=== PATIENT | male | born 1965 | race Caucasian/White ===

== ENCOUNTER 2020-09-13 15:32 | Emergency (ER) | payer MEDICARE, MEDICAID ==
--- NOTE | 2020-09-13 15:43 | EDM.PDOC ---
ED HPI GENERAL MEDICAL PROBLEM - General Chief Complaint: General Stated Complaint: INTOXICATION Time Seen by Provider: 09/13/20 15:36 - History of Present Illness INITIAL COMMENTS - FREE TEXT/NARRATIVE: 55-year-old male presents via EMS. Patient states that he was drinking some today. He had to walk a long way and so started to feel dehydrated so he sat down next to the road. A passerby called EMS and EMS brought him here saying that he was disoriented. He agrees that he is somewhat disoriented. He states that he has been drinking alcohol today. He request something to drink but has no other complaints at this time. - Related Data Allergies Allergy/AdvReac Type Severity Reaction Status Date / Time No Known Allergies Allergy Verified 08/23/18 10:28 MDT Home Meds: Home Meds DULoxetine HCl [Cymbalta] 60 mg PO DAILY 08/10/18 [History] FLUoxetine HCl [Fluoxetine HCl] 40 mg PO DAILY 08/10/18 [History] Fenofibrate,Micronized [Fenofibrate] 134 mg PO DAILY 08/10/18 [History] Levothyroxine [Synthroid] 50 mcg PO DAILY 08/10/18 [History] Lurasidone HCl [Latuda] 60 mg PO DAILY 08/10/18 [History] Meloxicam [Mobic] 15 mg PO DAILY 08/10/18 [History] Naltrexone 50 mg PO DAILY 08/10/18 [History] OLANZapine [Olanzapine] 30 mg PO BEDTIME 08/10/18 [History] Omeprazole Magnesium [Prilosec Otc] 20 mg PO DAILY 08/10/18 [History] busPIRone [Buspar] 15 mg PO BID 08/10/18 [History] cloNIDine [Catapres] 0.1 mg PO BEDTIME 08/10/18 [History] traZODone HCl [Trazodone HCl] 200 mg PO BEDTIME 08/10/18 [History] Disulfiram 500 mg PO DAILY 08/23/18 [History] Past Medical History Respiratory History: Reports: Other (See Below) Other Respiratory History: emphysema Musculoskeletal History: Reports: Other (See Below) Other Musculoskeletal History: cervical neck surgery Psychiatric History: Reports: Anxiety, Depression - Past Surgical History GI Surgical History: Reports: Cholecystectomy Musculoskeletal Surgical History: Reports: Other (See Below) Other Musculoskeletal Surgeries/Procedures:: marfins syndrome Social & Family History - Family History Family Medical History: No Pertinent Family History - Caffeine Use Caffeine Use: Reports: Coffee, Soda ED ROS GENERAL - Review of Systems Review Of Systems: See Below Free Text/Narrative/Comment: General: No fever. Skin: No rash. Eyes: No vision problems. ENT: No sore throat. Neck: No neck stiffness. Respiratory: No shortness of breath. Cardiac: No chest pain. Gastrointestinal: No nausea, vomiting or abdominal pain. Urinary: No dysuria. Musculoskeletal: No myalgias/arthralgias. Neurologic: No headache. ED EXAM, GENERAL - Physical Exam Exam: See Below Free Text/Narrative:: General: nontoxic in appearance, comfortable HEENT: Normocephalic/atraumatic, sclera anicteric, mucous membranes moist Neck: Normal range of motion Chest and Lungs: Bilateral breath sounds, clear to auscultation Cardiovascular: Regular rate and rhythm, no murmur Abdomen: Soft, non-tender Musculoskeletal: No edema or tenderness Neurologic: Awake, alert, no obvious deficits, moving all extremities Psychiatric: Appropriate, cooperative Departure - Departure Time of Disposition: 15:42 Disposition: Home, Self-Care 01 Condition: Good Clinical Impression: Alcohol intoxication - Discharge Information *PRESCRIPTION DRUG MONITORING PROGRAM REVIEWED*: Not Applicable *COPY OF PRESCRIPTION DRUG MONITORING REPORT IN PATIENT [facility]BA: Not Applicable Instructions: Alcohol Intoxication, [id number] Additional Instructions: Please remain at home for the rest of the day so that you can stay out of the heat and please stay hydrated. The following information is given to patients seen in the emergency department who are being discharged to home. This information is to outline your options for follow-up care. We provide all patients seen in our emergency department with a follow-up referral. The need for follow-up, as well as the timing and circumstances, are variable depending upon the specifics of your emergency department visit. If you don't have a primary care physician on staff, we will provide you with a referral. We always advise you to contact your personal physician following an emergency department visit to inform them of the circumstance of the visit and for follow-up with them and/or the need for any referrals to a consulting specialist. The emergency department will also refer you to a specialist when appropriate. This referral assures that you have the opportunity for follow-up care with a specialist. All of these measure are taken in an effort to provide you with optimal care, which includes your follow-up. Under all circumstances we always encourage you to contact your private physician who remains a resource for coordinating your care. When calling for follow-up care, please make the office aware that this follow-up is from your recent emergency room visit. If for any reason you are refused follow-up, please contact the [facility] Emergency Department at and asked to speak to the emergency department charge nurse. - Assessment/Plan Assessment:: 55-year-old male with no medical complaint presenting after being found sitting next to the road. The patient has moist mucous membranes his vital signs are normal. Patient is tolerating p.o. well in the ER. He has no complaints at this time. He is able to tell me where he lives nursing is working with him to figure out how we are going to get him home safely. Patient is ambulatory with a steady gait. I do believe he is safe for discharge.
== END 2020-09-13 16:21 | disposition home or self-care (01) ==
LOC: MW.ED 15:32
DX: F10.129 Alcohol abuse with intoxication, unspecified (principal)
CPT/HCPCS: 99284